=== PATIENT | female | born 1980 | race Two or more races ===

== ENCOUNTER 2017-09-06 21:54 | Emergency (ER) | payer MEDICAID ==
[~2017-09-06] VITALS: Ht 167.6 cm; Wt 99.8 kg
[2017-09-06 22:00] VITALS: BP 131/56
[2017-09-06 22:37] LABS: Urine Bacteria NONE SEEN /hpf (None Seen); Urine Blood 1+ /uL (Negative); Urine Mucus FEW (None Seen); Urine Specific Gravity 1.033 (1.001-1.035); Urine WBC 1 /hpf (0 - 5)
[2017-09-06 22:44] LABS: Basophils # (auto) 0 uL; Basophils % (auto) 1.1 % (0.0-2.0); Eosinophils # (auto) 0.1 uL; Eosinophils % (auto) 1.5 % (0.0-7.0); Hematocrit 41.4 % (36.0-46.0); Hemoglobin 13.7 g/dL (12.2-16.2); Lymphocytes # (auto) 1.8 uL; Lymphocytes % (auto) 42.3 % (10.0-50.0); Mean Corpuscular Hemoglobin 28.8 pg (28.0-32.0); Mean Corpuscular Hgb Conc. 33.2 g/dL (32.0-36.0); Mean Corpuscular Volume 86.8 fL (80.0-100.0); Monocytes # (auto) 0.6 uL; Neutrophils # (auto) 1.7 uL; Neutrophils % (auto) 40.1 % (37.0-80.0); Nucleated Red Blood Cells % 0.1 %; Platelet Count (auto) 173 10^3/uL (140-450); Red Blood Cells 4.77 10^6/uL (4.0-5.20); Red Cell Distribution Width 14.1 % (11.8-14.3); White Blood Cell 4.3 10^3/uL (4.4-10.8)
[2017-09-06 22:55] LABS: INR 0.95 (0.9-1.15); Prothrombin Time 10.4 sec (9.37-12.3)
[2017-09-06 23:04] LABS: Albumin 3.7 g/dL (3.4-5.0); BUN/Creatinine Ratio 16.3; Bilirubin, Total 0.2 mg/dL (0.2-1.0); Calcium 8.5 mg/dL (8.5-10.1); Potassium 4.2 mmol/L (3.5-5.1); Total Protein 8.2 g/dL (6.4-8.2)
== END 2017-09-07 06:00 | disposition left against medical advice (07) ==
LOC: ER 21:54
DX: R10.9 Unspecified abdominal pain (principal); Z53.21 Procedure and treatment not carried out due to patient leaving prior to being seen by health care provider
CPT/HCPCS: 36415; 80053; 81001; 82150; 83690; 85025; 85610; 85730

== ENCOUNTER 2021-03-31 21:48 | Emergency (ER) | payer MEDICAID ==
[~2021-03-31] VITALS: Ht 167.6 cm; Wt 90.7 kg
[2021-03-31] MEDS ORDERED: ONDANSETRON HCL 4 MG/2 ML VIAL IV ONE (22:30)
[2021-03-31] MEDS ORDERED: HYDROmorphone HCL 2 MG/ML VL IV ONE (22:30)
[2021-03-31] MEDS ORDERED: SODIUM CHLORIDE 0.9% 1,000 ML IVB ONE (22:30)
[2021-03-31 22:38] LABS: Basophils # (auto) 0 10 ^3/uL (0-0.2); Basophils % (auto) 0.3 % (0.0-2.0); Eosinophils # (auto) 0 10 ^3/uL (0-0.8); Eosinophils % (auto) 0.2 % (0.0-7.0); Hematocrit 40.2 % (36.0-46.0); Hemoglobin 13.3 g/dL (12.2-16.2); Lymphocytes # (auto) 1.3 10 ^3/uL (0.4-5.4); Lymphocytes % (auto) 11.2 % (10.0-50.0); Mean Corpuscular Hemoglobin 28.3 pg (28.0-32.0); Mean Corpuscular Hgb Conc. 33.1 g/dL (32.0-36.0); Mean Corpuscular Volume 85.6 fL (80.0-100.0); Monocytes # (auto) 0.6 10 ^3/uL (0-1.3); Monocytes % (auto) 5.5 % (0.0-12.0); Neutrophils # (auto) 9.5 10 ^3/uL (1.6-8.6); Neutrophils % (auto) 82.8 % (37.0-80.0); Red Cell Distribution Width 13.6 % (11.8-14.3); White Blood Cell 11.4 10^3/uL (4.4-10.8)
[2021-03-31 22:56] LABS: Albumin 3.5 g/dL (3.4-5.0); BUN/Creatinine Ratio 14.3; Calcium 9.2 mg/dL (8.5-10.1); Potassium 4.1 mmol/L (3.5-5.1)
[2021-03-31 22:59] LABS: Bilirubin, Total 0.3 mg/dL (0.2-1.0); Total Protein 7.9 g/dL (6.4-8.2)
[2021-04-01 00:47] LABS: Urine Bacteria NONE SEEN /hpf (None Seen); Urine Blood 2+ /uL (Negative); Urine Mucus FEW (None Seen); Urine Specific Gravity 1.025 (1.001-1.035); Urine WBC 4 /hpf (0 - 5)
[2021-04-01 04:54] VITALS: BP 121/71
== END 2021-04-01 05:20 | disposition home or self-care (01) ==
LOC: ER 21:49
DX: K52.9 Noninfective gastroenteritis and colitis, unspecified (principal); E78.5 Hyperlipidemia, unspecified
CPT/HCPCS: 36415; 74176; 76705; 80053; 81001; 82150; 83690; 83735; 85025; 93005; 96361; 96374; 96375; 99285; J1170; J2405; J7030